=== PATIENT | female | born 1985 | race Two or more races ===

== ENCOUNTER 2020-04-26 17:39 | Emergency (ER) | payer OTHER ==
[~2020-04-26] VITALS: Ht 154.9 cm; Wt 56.7 kg
[~2020-04-26 17:39] MED LIST: ZANTAC150 MG PO
== END 2020-04-26 22:18 | disposition home or self-care (01) ==
LOC: ER 17:39
DX: N83.292 Other ovarian cyst, left side (principal); N83.291 Other ovarian cyst, right side; R10.2 Pelvic and perineal pain; Z03.818 Encounter for observation for suspected exposure to other biological agents ruled out